=== PATIENT | female | born 1980 | race American Indian/Alaskan Native ===

== ENCOUNTER 2021-09-17 18:53 | Inpatient (IN) | payer OTHER, SELFPAY ==
[2021-09-17] VITALS (29 sets, daily range): BP systolic 119–161; BP diastolic 65–111; PULSE 81–104; RESP 8–24; TEMP 36.2; O2SAT 95–100
--- NOTE | 2021-09-17 19:02 | DI.CT.S_ITS ---
PROCEDURE: CT HEAD/BRAIN WO CON INDICATIONS: altered, suicidal TECHNIQUE: Noncontrast 4.5 mm thick angled axial sections acquired from the foramen magnum to the vertex, with coronal and sagittal reformats. For radiation dose reduction, the following was used: automated exposure control, adjustment of mA and/or kV according to patient size. COMPARISON: None. FINDINGS: Image quality: Excellent. CSF spaces: Basal cisterns are patent. No extra-axial fluid collections. Ventricles are normal in size and shape. Brain: No midline shift. No intracranial masses or hemorrhage. White-white matter interface is normal. Skull and face: Calvarium and visualized facial bones are intact, without suspicious lesions. Sinuses: Visualized sinuses and mastoids are clear. IMPRESSION: No acute intracranial abnormality Dictated by: Rom Sinha M.D. on 09/17/2021 at 19:28 Approved by: Rom Sinha M.D. on 09/17/2021 at 19:29
--- NOTE | 2021-09-17 19:02 | DI.RAD.S_ITS ---
PROCEDURE: XR CHEST 1V INDICATIONS: altered TECHNIQUE: One view of the chest was acquired. COMPARISON: None. FINDINGS: Surgical changes and devices: None. Lungs and pleura: Lungs are clear. No pleural effusions or pneumothorax. Mediastinum: Mediastinal contours appear normal. Heart size is normal. Bones and chest wall: No suspicious bony lesions. Overlying soft tissues appear unremarkable. IMPRESSION: No acute cardiopulmonary abnormality. Dictated by: Rom Sinha M.D. on 09/17/2021 at 19:54 Approved by: Rom Sinha M.D. on 09/17/2021 at 19:54
--- NOTE | 2021-09-17 19:03 | ED.AMS ---
HPI - Altered Mental Status General Chief Complaint: Toxicology Problem Stated Complaint: withdrawl heroin / meth + Suicidal / self harm Time Seen by Provider: 09/17/21 19:00 History of Present Illness HPI narrative: 41-year-old female former smoker with report of congenital heart issues and mental health history presents by EMS with report of suicidal ideation and threats to harm herself with a knife. She admits to significant alcohol abuse but denies any other substances. She has a very poor historian and guarding her airway, responding to noxious stimuli but providing very little information. Related Data Home Medications Medication Instructions Recorded Confirmed furosemide 20 mg tablet 20 mg PO QAM 09/17/21 09/17/21 gabapentin 300 mg tablet 300 mg PO TID 09/17/21 09/17/21 ibuprofen 400 mg tablet 400 mg PO Q8H PRN 09/17/21 09/17/21 isosorbide dinitrate 10 mg tablet 10 mg PO TID 09/17/21 09/17/21 losartan 50 mg tablet 50 mg PO DAILY 09/17/21 09/17/21 metoprolol succinate 50 mg 50 mg PO DAILY 09/17/21 09/17/21 tablet,extended release 24 hr omeprazole 20 mg capsule,delayed 20 mg PO DAILY 09/17/21 09/17/21 release quetiapine 50 mg tablet (Seroquel) 50 mg PO BEDTIME 09/17/21 09/17/21 venlafaxine 75 mg capsule,extended 75 mg PO QAM 09/17/21 09/17/21 release 24 hr Allergies Allergy/AdvReac Type Severity Reaction Status Date / Time pumpkin Allergy Severe Anaphylaxis Verified 09/17/21 20:21 squash Allergy Severe Anaphylaxis Verified 09/17/21 20:21 tree nut Allergy Severe Hives Verified 09/17/21 20:21 watermelon Allergy Severe Anaphylaxis Verified 09/17/21 20:21 lisinopril Allergy Intermediate Hives Verified 09/17/21 20:21 Review of Systems Review of Systems ROS Unobtainable: Unobtainable due to mental status/LOC Patient History Medical History (Updated 09/18/21 @ 04:54 by Link Nair DO) Alcohol withdrawal seizure Anxiety and depression Methamphetamine use Neuropathy No blood products Nonischemic cardiomyopathy PTSD (post-traumatic stress disorder) Surgical History (Updated 09/17/21 @ 20:18 by Lucía Denise RN) H/O tubal ligation Social History Smoking Status: Current every day smoker Exam Narrative Exam Narrative: GENERAL: 41 [] year old patient appears stated age. Well-developed patient, in obvious distress. Obtunded responds to noxious stimuli, guarding her airway. HEAD: Atraumatic. Normocephalic. EYES: Pupils equal round and reactive. Extraocular motions intact. No scleral icterus. No injection or drainage. ENT: Nose without bleeding, purulent drainage. Throat without erythema, tonsillar hypertrophy or exudate. Airway patent. NECK: Trachea midline. Non tender CARDIOVASCULAR: Regular rate and rhythm without murmurs, gallops, or rubs. RESPIRATORY: Clear to auscultation. Breath sounds equal bilaterally. No wheezes, rales, or rhonchi. GASTROINTESTINAL: Abdomen soft, non-tender, nondistended. EXTREMITIES: No edema or joint tenderness. BACK: Nontender without deformity or crepitance. No flank tenderness. SKIN: No rash or erythema of visible areas Initial Vital Signs Initial Vital Signs: Vital Signs Temperature 97.1 F L 09/17/21 18:50 Pulse Rate 87 09/17/21 18:50 Respiratory Rate 24 09/17/21 18:50 Blood Pressure 161/92 H 09/17/21 18:50 Pulse Oximetry 95 09/17/21 18:50 Course Course Course Narrative: Over the course of the visit the patient rather quickly becomes more alert. She is able to answer questions and states that she was drinking to excess, hoping not to wake up. She states that she routinely drinks between 1 to 2/5 of liquor per day and has been doing so for quite some time. Her last visit to any type of rehab or detox was in May. Her last hospitalization was at [facility] in [place] and we are working on obtaining records. Additionally, she frequently uses opioids and last used about 4 days ago. She states that she wants to go back to rehab and wants help. She is tearful and remorseful. As she joleen up she rather quickly starts developing withdrawal symptoms including agitation and tachycardia as well as diaphoresis and increasing nausea and vomiting. She responds well to phenobarb 260 mg initially but after about 1 hour symptoms begin to increase, another dose of phenobarb was given, this was helpful for about 2 hours at which point another dose was needed. She is given Catapres for help with her opioid withdrawals and though Suboxone was ordered it is held initially given its potential to contribute to respiratory depression and potentially even make seizures harder to treat. Patient has been admitted to the hospitalist, we currently have no bed availability and she will be boarding in the emergency department for the remainder of the shift. Orders Ordered: ED Orders 09/18/21 02:05 Urine Drug Screen, Rapid Stat Buprenorphine/Naloxone (Buprenorphine/Naloxone 8mg/2mg 1 Tab) 1 tab SL DAILY NICK Sodium Chloride (Normal Saline 0.9%) 1,000 mls @ 150 mls/hr IV CONT NICK Last Admin: 09/18/21 02:09 Dose: 150 mls/hr Documented by: Infusion: 09/18/21 02:07 Dose: 150 mls/hr Documented by: Admin: 09/17/21 19:26 Dose: 150 mls/hr Documented by: SHERRON Discontinued Medications Clonidine HCl (Clonidine Tts 0.1 Mg Patch) 0.1 mg TOP NOW ONE Stop: 09/18/21 04:14 Last Admin: 09/18/21 04:43 Dose: 0.1 mg Documented by: RAYRAY Ondansetron HCl (Ondansetron 4 Mg/2 Ml Inj) 4 mg IV NOW ONE Stop: 09/18/21 01:53 Last Admin: 09/18/21 02:09 Dose: 4 mg Documented by: SHERRON Ondansetron HCl (Ondansetron 4 Mg/2 Ml Inj) 4 mg IV NOW ONE Stop: 09/18/21 02:54 Last Admin: 09/18/21 02:59 Dose: 4 mg Documented by: JESSICA Pantoprazole Sodium (Pantoprazole 40 Mg Vial) 40 mg IV NOW ONE Stop: 09/18/21 01:53 Last Admin: 09/18/21 02:09 Dose: 40 mg Documented by: SHERRON Phenobarbital (Phenobarbital 65 Mg/Ml Vial) 260 mg IV NOW ONE Stop: 09/18/21 01:53 Last Admin: 09/18/21 02:09 Dose: 260 mg Documented by: SHERRON Phenobarbital (Phenobarbital 65 Mg/Ml Vial) 130 mg IV NOW ONE Stop: 09/18/21 02:54 Last Admin: 09/18/21 02:59 Dose: 130 mg Documented by: JESSICA Phenobarbital (Phenobarbital 65 Mg/Ml Vial) 130 mg IV NOW ONE Stop: 09/18/21 04:06 Last Admin: 09/18/21 04:09 Dose: 130 mg Documented by: RAYRAY Vital Signs Vital signs: Vital Signs - 8 hr 09/17/21 20:50 09/17/21 21:00 09/17/21 21:10 Pulse Rate 89 86 84 Respiratory Rate 11 L 14 15 Blood Pressure 121/71 119/69 125/71 Pulse Oximetry 99 99 99 09/17/21 21:20 09/17/21 21:30 09/17/21 21:40 Pulse Rate 93 H 88 85 Respiratory Rate 12 15 14 Blood Pressure 128/74 134/72 126/69 Pulse Oximetry 98 99 99 09/17/21 21:50 09/17/21 22:00 09/17/21 22:10 Pulse Rate 87 92 H 87 Respiratory Rate 15 16 15 Blood Pressure 124/69 125/70 121/68 Pulse Oximetry 99 99 99 09/17/21 22:20 09/17/21 22:30 09/17/21 22:40 Pulse Rate 89 89 89 Respiratory Rate 14 15 15 Blood Pressure 123/69 127/70 129/69 Pulse Oximetry 99 99 99 09/17/21 22:50 09/17/21 23:00 09/17/21 23:10 Pulse Rate 90 91 H 89 Respiratory Rate 15 15 15 Blood Pressure 129/69 143/74 H 136/65 Pulse Oximetry 99 100 99 09/17/21 23:30 09/18/21 00:00 09/18/21 00:30 Pulse Rate 89 83 85 Respiratory Rate 11 L 12 14 Blood Pressure 134/84 Pulse Oximetry 98 99 100 09/18/21 01:00 09/18/21 01:01 09/18/21 01:30 Pulse Rate 85 84 92 H Respiratory Rate 14 14 13 Blood Pressure 150/99 H Pulse Oximetry 100 100 99 09/18/21 02:00 09/18/21 02:30 09/18/21 03:00 Pulse Rate 103 H 94 H 93 H Respiratory Rate 20 11 L 25 H Blood Pressure Pulse Oximetry 94 94 98 09/18/21 03:30 09/18/21 04:00 09/18/21 04:22 Pulse Rate 93 H 92 H 100 H Respiratory Rate 13 14 27 H Blood Pressure 174/91 H Pulse Oximetry 95 94 97 MDM - Altered Mental Status Lab Data Result diagrams: 09/17/21 19:09/17/21 19: Labs: Lab Results 09/17/21 09/17/21 09/17/21 Range/Units 19:01 19:01 19:01 WBC 6.4 (4.5-11.0) X10^3/uL RBC 4.10 (4.0-5.2) X10^6/uL Hgb 11.3 L (12.0-16.0) g/dL Hct 34.2 L (36-46) % MCV 83.4 (80-100) fL MCH 27.5 (26-34) PG MCHC 33.0 (30-36) % RDW 18.7 H (11.6-14.8) % Plt Count 298 (150-400) X10^3/uL Neut % (Auto) 33.1 L (50-75) % Lymph % (Auto) 56.7 H (25-40) % [place] % (Auto) 4.8 (3-14) % Eos % (Auto) 3.0 (2-4) % Baso % (Auto) 2.4 H (0-2) % Neut # (Auto) 2100 (5469-8837) /uL Lymph # (Auto) 3600 (7852-2766) /uL [place] # (Auto) 300 (0-900) /uL Eos # (Auto) 200 (0-450) /uL Baso # (Auto) 200 H (0-100) /uL Sodium 146 H (137-145) mmol/L Potassium 3.4 (3.4-5.1) mmol/L Chloride 106 (98-107) mmol/L Carbon Dioxide 24 (22-32) mmol/L BUN 11 (7-17) mg/dL Creatinine 0.53 (0.52-1.04) mg/dL Estimated GFR > 60.0 (>60) mL/min BUN/Creatinine Ratio 20.8 (6-22) Glucose 125 H (70-100) mg/dL Lactate (0.7-2.1) mmol/L Calcium 8.8 (8.4-10.2) mg/dL Total Bilirubin 0.8 (0.2-1.3) mg/dL Conjugated Bilirubin 0.0 (0.0-0.3) md/dL Unconjugated Bilirubin 0.7 (0.0-1.1) mg/dL AST 43 H (14-36) IU/L ALT 30 (<35) IU/L Alkaline Phosphatase 91 (38-126) U/L Total Creatine Kinase 110 (30-135) U/L CK-MB (CK-2) 0.83 (<2.37) ng/mL CK-MB (CK-2) Rel Index 0.8 L (1.5-5.0) % Troponin I < 0.012 (0.01-0.034) ng/mL Total Protein 8.2 (6.3-8.2) g/dL Albumin 4.4 (3.5-5.0) g/dL Globulin 3.8 (1.7-4.1) g/dL Albumin/Globulin Ratio 1.2 (1.0-2.8) Salicylates < 1.0 (<20) mg/dL U Opiates 300ng/mL cut (Negative) Ur Oxycodone Screen (Negative) Urine Methadone Screen (Negative) Acetaminophen < 10 L (10-30) ug/mL Ur Barbiturates Screen (Negative) U Tricyclic Antidepress (Negative) Ur Phencyclidine Scrn (Negative) Ur Amphetamines Screen (Negative) U Methamphetamines Scrn (Negative) Ur MDMA Scrn (Ecstasy) (Negative) U Benzodiazepines Scrn (Negative) Urine Cocaine Screen (Negative) U Marijuana (THC) Screen (Negative) Ethyl Alcohol 431 H* ( - 10) mg/dL SARS-CoV-2 (PCR) (Negative) 09/17/21 09/17/21 09/17/21 Range/Units 19:01 19:08 19:08 WBC (4.5-11.0) X10^3/uL RBC (4.0-5.2) X10^6/uL Hgb (12.0-16.0) g/dL Hct (36-46) % MCV (80-100) fL MCH (26-34) PG MCHC (30-36) % RDW (11.6-14.8) % Plt Count (150-400) X10^3/uL Neut % (Auto) (50-75) % Lymph % (Auto) (25-40) % [place] % (Auto) (3-14) % Eos % (Auto) (2-4) % Baso % (Auto) (0-2) % Neut # (Auto) (9078-2160) /uL Lymph # (Auto) (2057-6224) /uL [place] # (Auto) (0-900) /uL Eos # (Auto) (0-450) /uL Baso # (Auto) (0-100) /uL Sodium (137-145) mmol/L Potassium (3.4-5.1) mmol/L Chloride (98-107) mmol/L Carbon Dioxide (22-32) mmol/L BUN (7-17) mg/dL Creatinine (0.52-1.04) mg/dL Estimated GFR (>60) mL/min BUN/Creatinine Ratio (6-22) Glucose (70-100) mg/dL Lactate 2.7 H (0.7-2.1) mmol/L Calcium (8.4-10.2) mg/dL Total Bilirubin (0.2-1.3) mg/dL Conjugated Bilirubin (0.0-0.3) md/dL Unconjugated Bilirubin (0.0-1.1) mg/dL AST (14-36) IU/L ALT (<35) IU/L Alkaline Phosphatase (38-126) U/L Total Creatine Kinase (30-135) U/L CK-MB (CK-2) (<2.37) ng/mL CK-MB (CK-2) Rel Index (1.5-5.0) % Troponin I (0.01-0.034) ng/mL Total Protein (6.3-8.2) g/dL Albumin (3.5-5.0) g/dL Globulin (1.7-4.1) g/dL Albumin/Globulin Ratio (1.0-2.8) Salicylates (<20) mg/dL U Opiates 300ng/mL cut (Negative) Ur Oxycodone Screen (Negative) Urine Methadone Screen (Negative) Acetaminophen (10-30) ug/mL Ur Barbiturates Screen (Negative) U Tricyclic Antidepress (Negative) Ur Phencyclidine Scrn (Negative) Ur Amphetamines Screen (Negative) U Methamphetamines Scrn (Negative) Ur MDMA Scrn (Ecstasy) (Negative) U Benzodiazepines Scrn (Negative) Urine Cocaine Screen (Negative) U Marijuana (THC) Screen (Negative) Ethyl Alcohol ( - 10) mg/dL SARS-CoV-2 (PCR) Negative Negative (Negative) 09/17/21 09/18/21 Range/Units 21:17 02:05 WBC (4.5-11.0) X10^3/uL RBC (4.0-5.2) X10^6/uL Hgb (12.0-16.0) g/dL Hct (36-46) % MCV (80-100) fL MCH (26-34) PG MCHC (30-36) % RDW (11.6-14.8) % Plt Count (150-400) X10^3/uL Neut % (Auto) (50-75) % Lymph % (Auto) (25-40) % [place] % (Auto) (3-14) % Eos % (Auto) (2-4) % Baso % (Auto) (0-2) % Neut # (Auto) (3364-0138) /uL Lymph # (Auto) (8823-3463) /uL [place] # (Auto) (0-900) /uL Eos # (Auto) (0-450) /uL Baso # (Auto) (0-100) /uL Sodium (137-145) mmol/L Potassium (3.4-5.1) mmol/L Chloride (98-107) mmol/L Carbon Dioxide (22-32) mmol/L BUN (7-17) mg/dL Creatinine (0.52-1.04) mg/dL Estimated GFR (>60) mL/min BUN/Creatinine Ratio (6-22) Glucose (70-100) mg/dL Lactate 2.0 (0.7-2.1) mmol/L Calcium (8.4-10.2) mg/dL Total Bilirubin (0.2-1.3) mg/dL Conjugated Bilirubin (0.0-0.3) md/dL Unconjugated Bilirubin (0.0-1.1) mg/dL AST (14-36) IU/L ALT (<35) IU/L Alkaline Phosphatase (38-126) U/L Total Creatine Kinase (30-135) U/L CK-MB (CK-2) (<2.37) ng/mL CK-MB (CK-2) Rel Index (1.5-5.0) % Troponin I (0.01-0.034) ng/mL Total Protein (6.3-8.2) g/dL Albumin (3.5-5.0) g/dL Globulin (1.7-4.1) g/dL Albumin/Globulin Ratio (1.0-2.8) Salicylates (<20) mg/dL U Opiates 300ng/mL cut Negative (Negative) Ur Oxycodone Screen Negative (Negative) Urine Methadone Screen Negative (Negative) Acetaminophen (10-30) ug/mL Ur Barbiturates Screen Negative (Negative) U Tricyclic Antidepress Negative (Negative) Ur Phencyclidine Scrn Negative (Negative) Ur Amphetamines Screen Negative (Negative) U Methamphetamines Scrn Negative (Negative) Ur MDMA Scrn (Ecstasy) Negative (Negative) U Benzodiazepines Scrn Negative (Negative) Urine Cocaine Screen Negative (Negative) U Marijuana (THC) Screen Negative (Negative) Ethyl Alcohol ( - 10) mg/dL SARS-CoV-2 (PCR) (Negative) Discharge Plan Departure Patient Disposition: Admitted As Inpatient Clinical Impression: Alcohol withdrawal syndrome, Depression with suicidal ideation Admit Date/Time: 09/18/21 04:47 Admit Provider: Cookie Novak
[2021-09-17 19:16] LABS: Add Manual Diff / Slide Review NO; Basophils Absolute Auto 200 /uL (0-100); Basophils Percent Auto 2.4 % (0-2); Eosinophils Absolute Auto 200 /uL (0-450); Hematocrit 34.2 % (36-46); Hemoglobin 11.3 g/dL (12.0-16.0); Lymphocytes Absolute Auto 3600 /uL (1100-4500); Lymphocytes Percent Auto 56.7 % (25-40); Mean Corpuscular Hemoglobin 27.5 PG (26-34); Mean Corpuscular Volume 83.4 fL (80-100); Monocytes Absolute Auto 300 /uL (0-900); Monocytes Percent Auto 4.8 % (3-14); Neutrophils Absolute Auto 2100 /uL (1500-7000); Neutrophils Percent Auto 33.1 % (50-75); Platelet Count 298 X10^3/uL (150-400); Red Cell Distribution Width 18.7 % (11.6-14.8); White Blood Cell Count 6.4 X10^3/uL (4.5-11.0)
[2021-09-17 19:25] LABS: Creatine Kinase 110 U/L (30-135)
[2021-09-17 19:26] LABS: COVID19 -Nasal RAPID Negative (Negative)
[2021-09-17] MEDS: SODIUM CHLORIDE 0.9% 1,000 ML 150 ML IV (19:26)
[2021-09-17 19:28] LABS: Acetaminophen < 10 ug/mL (10-30); Alanine Aminotransferase 30 IU/L (<35); Albumin 4.4 g/dL (3.5-5.0); Albumin Globulin Ratio 1.2 (1.0-2.8); Alkaline Phosphatase 91 U/L (38-126); Aspartate Aminotransferase 43 IU/L (14-36); BUN Creatinine Ratio 20.8 (6-22); Bilirubin Total 0.8 mg/dL (0.2-1.3); Bilirubin Unconjugated 0.7 mg/dL (0.0-1.1); Blood Urea Nitrogen 11 mg/dL (7-17); Calcium 8.8 mg/dL (8.4-10.2); Carbon Dioxide 24 mmol/L (22-32); Chloride 106 mmol/L (98-107); Estimated Glomerular Filt Rate > 60.0 mL/min (>60); Globulin 3.8 g/dL (1.7-4.1); Glucose 125 mg/dL (70-100); HEMOLYSIS < 15 (0-50); Potassium 3.4 mmol/L (3.4-5.1); Salicylate < 1.0 mg/dL (<20); Sodium 146 mmol/L (137-145); Total Protein 8.2 g/dL (6.3-8.2)
[2021-09-17 19:37] LABS: Troponin I < 0.012 ng/mL (0.01-0.034)
[2021-09-17 19:38] LABS: Lactate (Lactic Acid) 2.7 mmol/L (0.7-2.1)
[2021-09-17 19:39] LABS: Ethanol (ETOH) 431 mg/dL
[2021-09-17 19:41] LABS: CKMB % Relative Index 0.8 % (1.5-5.0); Creatine Kinase MB 0.83 ng/mL (<2.37)
[2021-09-17 20:21] LABS: COVID19 - ADMIT (NP swab/PCR) Negative (Negative)
[2021-09-17 21:05] LABS: Reflexed Lactate in 2 Hours Y
--- NOTE | 2021-09-17 22:56 | PC.NURSE ---
During assessment patient was somnolent but arousable and was able to answer some questions and verbalize that she is experiencing both auditory and visual hallucinations. She also verbalized constant suicidal thoughts but has no plan and just hoping it would happen. Patient reports hx of both heroin and meth use but has not been able to use in 2 days and reports vodka is what she typically drinks. Her hallucinations include: little things running around trying to jump on the bed (visual) Hear things I shouldn't hear (auditory) How they haven't killed me yet (auditory) How many ways they will kill me (auditory) I'm not safe (auditory) Her visual hallucinations include an ex who previously killed me and is still trying to kill me and is the voice she hears.
[2021-09-18] VITALS (43 sets, daily range): BP systolic 103–178; BP diastolic 58–99; PULSE 72–116; RESP 9–37; TEMP 36.7–37.4; O2SAT 93–100; BMI 32.2
[2021-09-18] MEDS: PHENobarbital 65 MG/ML VIAL 260 MG IV (02:09)
[2021-09-18] MEDS: SODIUM CHLORIDE 0.9% 1,000 ML 150 ML IV (02:09)
[2021-09-18] MEDS: PANTOPRAZOLE 40 MG VIAL IV (02:09)
[2021-09-18] MEDS: ONDANSETRON 4 MG/2 ML INJ IV ×2 (02:09→02:59)
[2021-09-18 02:16] LABS: Ur Creatinine 20 (Normal); Ur Specific Gravity 1.025 (Normal); Urine pH 5 (Normal)
[2021-09-18 02:17] LABS: UR Morphine/Opiate cutoff 300 Negative (Negative); Urine Amphetamines Negative (Negative); Urine Barbiturates Negative (Negative); Urine Benzodiazepines Negative (Negative); Urine Cocaine Negative (Negative); Urine MDMA Negative (Negative); Urine Methadone Negative (Negative); Urine Methamphetamines Negative (Negative); Urine Oxycodone Negative (Negative); Urine Phencyclidine Negative (Negative); Urine Tetrahydrocannabinol Negative (Negative); Urine Tricyclic Antidepressant Negative (Negative)
--- NOTE | 2021-09-18 02:44 | PC.NURSE ---
Tremors have stopped after phenobarb. Pt states she's feeling better.
[2021-09-18] MEDS: PHENobarbital 65 MG/ML VIAL 130 MG IV ×2 (02:59→04:09)
[2021-09-18] MEDS: cloNIDine TTS 0.1 MG PATCH TOP (04:43)
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
[2021-09-18] MEDS: dexmedeTOMIDine in 0.9 % NaCL 400 MCG/100 ML PLAST..BAG IV (06:10)
[2021-09-18] MEDS: SODIUM CHLORIDE 0.45% 1,000 ML 100 ML IV ×2 (06:18→15:38)
[2021-09-18 06:52] LABS: Lipase 72 U/L (23-300)
[2021-09-18] MEDS: HALOPERIDOL 5 MG/ML VIAL 2 MG IV (07:43)
--- NOTE | 2021-09-18 08:59 | PC.NURSE ---
AM meds held-- first for vomiting, now pt sleeping comfortably on Precedex drip.
[2021-09-18] MEDS: THIAMINE 100 MG TABLET PO (10:13)
[2021-09-18] MEDS: GABAPENTIN 300 MG CAPSULE PO ×2 (10:13→20:34)
[2021-09-18] MEDS: METOPROLOL ER 50 MG TABLET PO (10:13)
[2021-09-18] MEDS: PANTOPRAZOLE DR 40 MG TABLET PO (10:14)
[2021-09-18] MEDS: FOLIC ACID 1 MG TABLET PO (10:14)
[2021-09-18] MEDS: ISOSORBIDE DINITRATE 10 MG TABLET PO ×2 (10:14→19:33)
[2021-09-18] MEDS: DOCUSATE 100 MG CAPSULE PO ×2 (10:14→20:34)
[2021-09-18] MEDS: MULTIVITAMIN 1 TABLET 1 TAB PO (10:15)
[2021-09-18] MEDS: LOSARTAN 50 MG TABLET PO (10:16)
[2021-09-18] MEDS: VENLAFAXINE ER 75 MG CAP PO (10:16)
[2021-09-18] MEDS: HEPARIN 5,000 UNIT/ML VIAL 5000 UNIT SUBCUT ×2 (10:20→20:34)
--- NOTE | 2021-09-18 10:51 | PC.NURSE ---
EKG reviewed w/ Dr. Garcia. Noted prolonged QT interval. Order received to discontinue all medications that prolong QTC. Spoke w/ Navdeep [facility] who will review, venlafaxine, quitiapine, precedex, haldol and start ativan according to CIWA / withdrawal protocol.
[2021-09-18] MEDS: LORazepam 2 MG/ML INJ IV ×2 (13:15→20:33)
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
--- NOTE | 2021-09-18 14:23 | CM.SWNOTE ---
FOOD AND DRUG INSPECTOR Note FOOD AND DRUG INSPECTOR calls Prasanth [facility] (Ph. # [phone]) to discuss patient's belongings, it is reported that patient's belongings are at the motel. FOOD AND DRUG INSPECTOR asks if they could be dropped of at ED, it is reported that count includes the [facility] is understaffed at this time but staff will try to find time to do so. FOOD AND DRUG INSPECTOR provides phone number for count includes the [facility] staff to contact for further updates about patient retrieving her belongings. LIVAN Soni
--- NOTE | 2021-09-18 14:33 | PC.NURSE ---
isosorbid dose due at 12noon held r/t last am dose. Receiving RN aware.
--- NOTE | 2021-09-18 16:44 | PT-IP ANOTE ---
pt just came up to the acute floor from the ER. checked with nurse and stated that pt received ativan prior to transfer to the floor and is not ready for PT at this time. will f/u.
[2021-09-19] VITALS (12 sets, daily range): BP systolic 114–144; BP diastolic 49–98; PULSE 60–84; RESP 14–21; TEMP 36.7–37.1; O2SAT 98–100
[2021-09-19] MEDS: SODIUM CHLORIDE 0.45% 1,000 ML 100 ML IV ×2 (00:32→10:14)
[2021-09-19 05:54] LABS: Magnesium 1.6 mg/dL (1.6-2.3)
[2021-09-19 05:56] LABS: Alanine Aminotransferase 25 IU/L (<35); Albumin 3.9 g/dL (3.5-5.0); Albumin Globulin Ratio 1.1 (1.0-2.8); Alkaline Phosphatase 80 U/L (38-126); Aspartate Aminotransferase 45 IU/L (14-36); Bilirubin Total 3.4 mg/dL (0.2-1.3); Blood Urea Nitrogen 6 mg/dL (7-17); Calcium 8.8 mg/dL (8.4-10.2); Carbon Dioxide 27 mmol/L (22-32); Chloride 100 mmol/L (98-107); Estimated Glomerular Filt Rate > 60.0 mL/min (>60); Globulin 3.7 g/dL (1.7-4.1); Glucose 97 mg/dL (70-100); HEMOLYSIS < 15 (0-50); Potassium 3.8 mmol/L (3.4-5.1); Sodium 135 mmol/L (137-145); Total Protein 7.6 g/dL (6.3-8.2)
[2021-09-19] MEDS: ISOSORBIDE DINITRATE 10 MG TABLET PO ×3 (06:00→18:56)
[2021-09-19] MEDS: PANTOPRAZOLE DR 40 MG TABLET PO (06:00)
[2021-09-19 06:04] LABS: Add Manual Diff / Slide Review NO; Basophils Absolute Auto 0 /uL (0-100); Basophils Percent Auto 0.4 % (0-2); Eosinophils Absolute Auto 200 /uL (0-450); Eosinophils Percent Auto 3.5 % (2-4); Hematocrit 33.6 % (36-46); Hemoglobin 11.3 g/dL (12.0-16.0); Lymphocytes Absolute Auto 1200 /uL (1100-4500); Lymphocytes Percent Auto 28.5 % (25-40); Mean Corpuscular HGB Conc 33.6 % (30-36); Mean Corpuscular Hemoglobin 27.7 PG (26-34); Mean Corpuscular Volume 82.3 fL (80-100); Monocytes Absolute Auto 400 /uL (0-900); Monocytes Percent Auto 8.2 % (3-14); NT-proBNP (BNP-Adult 18+) 894 pg/mL (<125); Neutrophils Absolute Auto 2600 /uL (1500-7000); Neutrophils Percent Auto 59.4 % (50-75); Platelet Count 237 X10^3/uL (150-400); Red Blood Cell Count 4.08 X10^6/uL (4.0-5.2); Red Cell Distribution Width 18.5 % (11.6-14.8); White Blood Cell Count 4.3 X10^3/uL (4.5-11.0)
[2021-09-19] MEDS: LORazepam 2 MG/ML INJ IV ×2 (06:15→09:27)
--- NOTE | 2021-09-19 09:40 | PT-IP ANOTE ---
reviewed EMR and pt has CIWA score of 14. talked with nurse and stated that pt has CIWA of 11. ativan was given and will receive other meds at that moment. informed nurse that PT eval will be on hold for now and will recheck when pt is more appropriate. will need PT eval deferred until CIWA score <10. will f/u.
[2021-09-19] MEDS: LOSARTAN 50 MG TABLET PO (10:00)
[2021-09-19] MEDS: HEPARIN 5,000 UNIT/ML VIAL 5000 UNIT SUBCUT ×2 (10:00→22:34)
[2021-09-19] MEDS: FOLIC ACID 1 MG TABLET PO (10:00)
[2021-09-19] MEDS: DOCUSATE 100 MG CAPSULE PO ×2 (10:00→22:33)
[2021-09-19] MEDS: GABAPENTIN 300 MG CAPSULE PO ×3 (10:00→22:33)
[2021-09-19] MEDS: MULTIVITAMIN 1 TABLET 1 TAB PO (10:00)
[2021-09-19] MEDS: METOPROLOL ER 50 MG TABLET PO (10:00)
[2021-09-19] MEDS: THIAMINE 100 MG TABLET PO (10:00)
[2021-09-19] MEDS: ACETAMINOPHEN 325 MG TABLET 650 MG PO (10:07)
--- NOTE | 2021-09-19 11:32 | PM.ICURNDS ---
- :: Informed by MICU staff that patient is not ICU
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
[2021-09-19] MEDS: NICOTINE 14 PATCH 14 MG TOP (12:04)
[2021-09-19] MEDS: ONDANSETRON 4 MG/2 ML INJ IV ×2 (12:12→17:13)
[2021-09-19] MEDS: MAGNESIUM CHLORIDE 64 MG TABLET 128 MG PO (12:13)
[2021-09-19] MEDS: MORPHINE 2 MG/ML INJ IV (12:34)
--- NOTE | 2021-09-19 14:10 | PT.IIE ---
Current Diagnoses Alcohol abuse with withdrawal delirium (09/18/21) Medical History (Last Updated 09/18/21 @ 05:25 by Cookie Novak MD) Alcohol withdrawal seizure Anxiety and depression Hypertension Methamphetamine use Neuropathy No blood products Nonischemic cardiomyopathy PTSD (post-traumatic stress disorder) Physical Therapy Inpatient Evaluation/Re-Eval M1 PT/OT-IP Prior Functional Status Start: 09/19/21 15:55 Freq: NEEDED Status: Active Protocol: Document 09/19/21 14:10 AB (Rec: 09/19/21 16:08 AB [email or web address]) Medical Review Prior Functional Status Medical History Reviewed Yes Communication able to make needs known Mobility and Gait pt stated that she is modified independent with all mobilities and ambulation without AD. stated that she was using a FWW when she was at [place] due to back issues but left her FWW and was able to manage without AD but with difficulty Social History Household Members none Living Arrangements Homeless Additional Social History Comment pt stated that she was staying at her friends place/motel and she got kicked out. stated that she has family back in [place] but cannot go back there since her family does not want her. M2 PT-IP Current Condition Start: 09/19/21 15:55 Freq: NEEDED Status: Active Protocol: Document 09/19/21 14:10 AB (Rec: 09/19/21 16:08 AB [email or web address]) Physical Therapy Current Condition Current Condition Evaluation Date 09/19/21 Treatment Diagnosis alcohol withdrawal; suicidal ideation; difficulty in walking Onset Date 09/18/21 M3 PT-IP Subjective Start: 09/19/21 15:55 Freq: NEEDED Status: Active Protocol: Document 09/19/21 14:10 AB (Rec: 09/19/21 16:08 AB [email or web address]) Subjective Physical Therapy Visit Type Type Initial Evaluation Visit Start Time 14:10 Visit Stop Time 14:45 Total Visit Minutes 35 Number of MANAGER SCIENTIFIC Visits 0 Physical Therapy Visit Comments Patient Comments agreeable to do PT Therapy Pain Assessment Pain When Pain Assessed At Rest Pain Present Pain Present Pain Reported Location Generalized Intensity 8 Scale Used Numeric (0 - 10) Pain Management Techniques Distraction,Modification of Treatment,Re-positioning, Timing of Activity with Medications M4 PT-IP Mobility and Gait Start: 09/19/21 15:55 Freq: NEEDED Status: Active Protocol: Document 09/19/21 14:10 AB (Rec: 09/19/21 16:08 AB [email or web address]) PT-Bed Mobility Assessment Supine to Sit Supine to Sit Standby Assistance Sit to Supine Sit to Supine Standby Assistance PT-Transfer Assessment Sit to and From Stand Sit to and from Stand Minimal Assistance,1 Person Assistance,Use of Upper Extremities Equipment Transfer Assistive Device Gait Belt,Front Wheeled Walker Orthotic/Prosthetic Devices or Brace: No Comments Mobility Comments BP in supine: 141/85. pt completed supine to sit SBA. able to sit on EOB SBA. completed sit to stand min A and cues. (+) tremors. ambulated in room using FWW ~ 20 ft min A . ataxic gait with (+) tremors. pt refused to sit up on chair. went back to bed and completed sit to supine SBA. positioned pt in bed. call light and table placed wtihin reach. Gait Assessment Gait Gait Assistance Required: Minimum Assistance Distance (Feet) 20 Able to Maintain Weight Bearing Status Yes During Gait Assistive Devices Assistive Device Gait Belt,Front Wheeled Walker Orthotic/Prosthetic Devices or Brace: No Gait Deviations General Gait Pattern Decreased Stride Length, Decreased Feet Clearance Factors Limiting Gait Function Factors Limiting Gait Function Decreased Activity Tolerance, Decreased Strength,Difficulty Following Directions,Pain,Poor Balance,Poor Safety Awareness Comments Gait Comments pls refer to mobility section for details PT-Balance Assessment Sitting Balance and Reactions Static Sitting Balance Ability Good Dynamic Sitting Balance Ability Fair Standing Balance and Reactions Static Standing Balance Ability Fair Dynamic Standing Balance Ability Fair Device Used FWW M5 PT-IP Objective Assessments Start: 09/19/21 15:55 Freq: NEEDED Status: Active Protocol: Document 09/19/21 14:10 AB (Rec: 09/19/21 16:08 [email or web address]) Orientation Orientation/Cognition Level of Alertness Alert Orientation Name Language Function Ability No Deficits Noted Safety Awareness Decreased Safety Awareness Gross Range of Motion Lower Extremity ROM Assessment Within Functional Limits Strength Lower Extremity Strength Hip 3+/5 Knee 3+/5 M6 PT-IP Treatment Start: 09/19/21 15:55 Freq: NEEDED Status: Active Protocol: Document 09/19/21 14:10 AB (Rec: 09/19/21 16:08 [email or web address]) Physical Therapy Treatment Education Education Provided Safety M7 PT-IP Assessment and Plan Start: 09/19/21 15:55 Freq: NEEDED Status: Active Protocol: Document 09/19/21 14:10 AB (Rec: 09/19/21 16:08 AB [email or web address]) PT Summary Assessment and Plan Potential Rehabilitation Potential Fair Status of Condition at Evaluation Evolving Summary Impairments Pain,ROM,Strength,Balance, Coordination,Sensation,Tone, Cognition,Bed Mobility, Transfers,Gait,Activity Tolerance Assessment Summary pt requiring min A with mobility using FWW. pt presents with unsteady ataxic gait with (+) tremors. pt will need SNF rehab at this time. will continue to assess progress. Goals Bed Mobility Goal Independent Transfer Goal Independent,Front Wheeled Walker Gait Goal Independent,Front Wheel Walker Gait Distance 200 Other Goals improve ambulation without AD 300 ft mod I up/down steps without AD SBA Days to Meet Goals 10 Frequency of Treatment Frequency Of Treatment Once a Day Treatment Plan Physical Therapy Treatment Plan Bed Mobility Training,Transfer Training,Gait Training, Therapeutic Exercise,Balance Retraining,Discharge Planning, Neuromuscular Re-ed, Coordination Retraining Recommendations To Nursing Amount of Assist Needed 1 Person Assist Discharge Recommendations PT Discharge Recommendations SNF Rehab Transportation Needs at Discharge Wheelchair/Cabulance
--- NOTE | 2021-09-19 14:10 | PT.IIE ---
Current Diagnoses Alcohol abuse with withdrawal delirium (09/18/21) Medical History (Last Updated 09/18/21 @ 05:25 by Cookie Novak MD) Alcohol withdrawal seizure Anxiety and depression Hypertension Methamphetamine use Neuropathy No blood products Nonischemic cardiomyopathy PTSD (post-traumatic stress disorder) Physical Therapy Inpatient Evaluation/Re-Eval M1 PT/OT-IP Prior Functional Status Start: 09/19/21 15:55 Freq: NEEDED Status: Active Protocol: Document 09/19/21 14:10 AB (Rec: 09/19/21 16:08 AB [email or web address]) Medical Review Prior Functional Status Medical History Reviewed Yes Communication able to make needs known Mobility and Gait pt stated that she is modified independent with all mobilities and ambulation without AD. stated that she was using a FWW when she was at [place] due to back issues but left her FWW and was able to manage without AD but with difficulty Social History Household Members none Living Arrangements Homeless Additional Social History Comment pt stated that she was staying at her friends place/motel and she got kicked out. stated that she has family back in [place] but cannot go back there since her family does not want her. M2 PT-IP Current Condition Start: 09/19/21 15:55 Freq: NEEDED Status: Active Protocol: Document 09/19/21 14:10 AB (Rec: 09/19/21 16:08 AB [email or web address]) Physical Therapy Current Condition Current Condition Evaluation Date 09/19/21 Treatment Diagnosis alcohol withdrawal; suicidal ideation; difficulty in walking Onset Date 09/18/21 M3 PT-IP Subjective Start: 09/19/21 15:55 Freq: NEEDED Status: Active Protocol: Document 09/19/21 14:10 AB (Rec: 09/19/21 16:08 AB [email or web address]) Subjective Physical Therapy Visit Type Type Initial Evaluation Visit Start Time 14:10 Visit Stop Time 14:45 Total Visit Minutes 35 Number of PLANT SUPERINTENDENT Visits 0 Physical Therapy Visit Comments Patient Comments agreeable to do PT Therapy Pain Assessment Pain When Pain Assessed At Rest Pain Present Pain Present Pain Reported Location Generalized Intensity 8 Scale Used Numeric (0 - 10) Pain Management Techniques Distraction,Modification of Treatment,Re-positioning, Timing of Activity with Medications M4 PT-IP Mobility and Gait Start: 09/19/21 15:55 Freq: NEEDED Status: Active Protocol: Document 09/19/21 14:10 AB (Rec: 09/19/21 16:08 AB [email or web address]) PT-Bed Mobility Assessment Supine to Sit Supine to Sit Standby Assistance Sit to Supine Sit to Supine Standby Assistance PT-Transfer Assessment Sit to and From Stand Sit to and from Stand Minimal Assistance,1 Person Assistance,Use of Upper Extremities Equipment Transfer Assistive Device Gait Belt,Front Wheeled Walker Orthotic/Prosthetic Devices or Brace: No Comments Mobility Comments BP in supine: 141/85. pt completed supine to sit SBA. able to sit on EOB SBA. c/o lightheadedness, dizziness. BP checked: 152/106. rechecked BP : 151/108. pt agreed to do some ambulation. completed sit to stand min A and cues. (+) tremors. ambulated in room using FWW ~ 20 ft min A . ataxic gait with (+) tremors. pt refused to sit up on chair. went back to bed and completed sit to supine SBA. positioned pt in bed. call light and table placed wtihin reach. BP supine in bed: 144/93 Gait Assessment Gait Gait Assistance Required: Minimum Assistance Distance (Feet) 20 Able to Maintain Weight Bearing Status Yes During Gait Assistive Devices Assistive Device Gait Belt,Front Wheeled Walker Orthotic/Prosthetic Devices or Brace: No Gait Deviations General Gait Pattern Decreased Stride Length, Decreased Feet Clearance Factors Limiting Gait Function Factors Limiting Gait Function Decreased Activity Tolerance, Decreased Strength,Difficulty Following Directions,Pain,Poor Balance,Poor Safety Awareness Comments Gait Comments pls refer to mobility section for details PT-Balance Assessment Sitting Balance and Reactions Static Sitting Balance Ability Good Dynamic Sitting Balance Ability Fair Standing Balance and Reactions Static Standing Balance Ability Fair Dynamic Standing Balance Ability Fair Device Used FWW M5 PT-IP Objective Assessments Start: 09/19/21 15:55 Freq: NEEDED Status: Active Protocol: Document 09/19/21 14:10 AB (Rec: 09/19/21 16:08 AB [email or web address]) Orientation Orientation/Cognition Level of Alertness Alert Orientation Name Language Function Ability No Deficits Noted Safety Awareness Decreased Safety Awareness Gross Range of Motion Lower Extremity ROM Assessment Within Functional Limits Strength Lower Extremity Strength Hip 3+/5 Knee 3+/5 M6 PT-IP Treatment Start: 09/19/21 15:55 Freq: NEEDED Status: Active Protocol: Document 09/19/21 14:10 AB (Rec: 09/19/21 16:08 AB [email or web address]) Physical Therapy Treatment Education Education Provided Safety M7 PT-IP Assessment and Plan Start: 09/19/21 15:55 Freq: NEEDED Status: Active Protocol: Document 09/19/21 14:10 AB (Rec: 09/19/21 16:08 AB [email or web address]) PT Summary Assessment and Plan Potential Rehabilitation Potential Fair Status of Condition at Evaluation Evolving Summary Impairments Pain,ROM,Strength,Balance, Coordination,Sensation,Tone, Cognition,Bed Mobility, Transfers,Gait,Activity Tolerance Assessment Summary pt requiring min A with mobility using FWW. pt presents with unsteady ataxic gait with (+) tremors. pt will need SNF rehab at this time. will continue to assess progress. Goals Bed Mobility Goal Independent Transfer Goal Independent,Front Wheeled Walker Gait Goal Independent,Front Wheel Walker Gait Distance 200 Other Goals improve ambulation without AD 300 ft mod I up/down steps without AD SBA Days to Meet Goals 10 Frequency of Treatment Frequency Of Treatment Once a Day Treatment Plan Physical Therapy Treatment Plan Bed Mobility Training,Transfer Training,Gait Training, Therapeutic Exercise,Balance Retraining,Discharge Planning, Neuromuscular Re-ed, Coordination Retraining Recommendations To Nursing Amount of Assist Needed 1 Person Assist Discharge Recommendations PT Discharge Recommendations SNF Rehab Transportation Needs at Discharge Wheelchair/Cabulance
[2021-09-19] MEDS: LORazepam 1 MG TABLET PO ×3 (14:42→22:29)
--- NOTE | 2021-09-19 15:45 | CM.DANOTE ---
DCP/continued:Reviewed chart. Patient currently in room# 225. Patient reports that she is actively detoxing from alcohol. Patient reports that she has had seizures in the past from detox. Met briefly with patient today. Patient denies suicidal or homicidal ideation(s). Patient requesting to get assistance with transportation to [facility]. Patient reports that her sober friend/Una is there and she would like to go there. Patient reports that she lives in [place] and was here visiting her son whom is now in prison. Patient reports that she does not have money to get ticket to [place]. Patient provides CM team with permission to speak with her Mother/Keyana in [place] re: patient's return. CM team will request TRAINING AND DEVELOPMENT PROFESSIONAL follow up on 09-20-21. In addition to the above patient requesting that her belongings be brought here from [facility]. TRAINING AND DEVELOPMENT PROFESSIONAL notified patient that [facility] does not have space for patient's belongings. However, TRAINING AND DEVELOPMENT PROFESSIONAL did call [facility] and confirm that they have patient belongings and that they are safe. P: Patient requesting assistance to obtain transport to [place], [place] when medically stable. Patient agreeable for CM team to call family to assist. CARMEN Discharge Planning/Care Management CM Discharge Assessment Start: 09/19/21 15:42 Freq: Status: Active Protocol: Document 09/19/21 15:42 ZENYS (Rec: 09/19/21 15:44 ZENYS [id number]) Discharge Planning Assessment Assigned Staff Electronic Warfare Officer LIVAN Garnica Contact Information Keyana [place] (Mother) ph# [phone] Advance Directives? No History Provided By Patient,Medical Record Prior Living Arrangements Homeless Household Members none Type of transporation used prior to Relies on Others admit Independent with ADL's Yes Is patient alert and oriented? Yes Caregiver for Another No DME Already Rented / Owned Cane Comment Patient reports back issues since May 2021 patient uses cane as needed. Referrals Initiated Other Whiteboard Updated in Patient Room with Yes name and ext. # of Staff Electronic Warfare Officer Review Status In Process Next Review Type Continued Stay Review ED Psychiatric Symptoms Assessment Start: 09/18/21 11:01 Freq: Status: Discharge Protocol: Document 09/18/21 11:19 NICHOLAS (Rec: 09/18/21 13:20 NICHOLAS [id number]) Psychiatric Symptoms Assessment Symptoms/Complaint Feels Depressed Duration Constant History Of Same Yes Context Unknown Improves With Therapy Worsens With Alcohol,Drug Use Associated Psychiatric Symptoms None Details of Plan Denies SI/HI. States I get like that when I'm drinking but I want to live and have a lot to live for. Level of Consciousness Alert,Appropriate,Awake Patient Orientation Name,Age,Birthday,Month,Date, Year Patient Behavior/Mood Anxious Ability to Follow Directions Excellent Patient Cognition Impaired No Affect Description Anxious Hallucination Type None Delusion Description Not Present Thought Process: Normal,Goal-directed Depressive Symptoms Increased Anxiety,Low Self Esteem Suicidal Ideation None Suicide Plan No Plan Homicidal Ideation None TRAINING AND DEVELOPMENT PROFESSIONAL - Loan Specialist Assessment Start: 09/18/21 13:47 Freq: Status: Discharge Protocol: Document 09/18/21 13:47 LN (Rec: 09/18/21 14:17 LN [id number]) TRAINING AND DEVELOPMENT PROFESSIONAL/Loan Specialist Assessment Start date 09/18/21 Visit Start Time 13:10 End date 09/18/21 Visit End Time 13:25 Total time Care Management spent on 20 patient visit-in minutes Presenting Problem Patient presents to the ED last evening via EMS with concern for ETOH overdose, hx of methamphetamine and herion use as well as suicidal ideations. Precipitating Event(s) Patient endorses that she used Methamphetamine and Herion 4 days ago but last evening she drank at least a fifth of vodka way overdid it. Patient endorses she resides in [place] and came to [place] seeking support from a friend but friend chose his girlfriend over her. Patient endorses SI last night but no current SI. Patient Strengths Patient is seeking help and would like to go to group home [facility] inpatient treatment. Current Behavioral Health Provider(s) None reported Include Facility, Provider, Ph. # Family Hx of Behavioral Abuse Patient endorses her friends and family members use substances and are not good sober supports. Rehab Facilities? ((Date(s), Location(s) Patient endorses going to ) [facility] in [place], [place] in 2007 for 4 months. It is reproted that this inpatient facility is no longer open. Patient endorses going to [facility] inpatient treatment in 2018 for 30 days in [place], [place] (Ph. # [phone]) Patient endorses going to the [facility] in [place], [place] in May 2021 for 30 days during the blackout period, then left the facility and relapsed. (Ph. # [phone]) Patient endorses that she has hx of going to detox several times and engaging in AA. Patient endorses that she was residing in a sober living house in [place], [place] in 2019. History of Withdrawal? Seizures? Patient endorses hx of Delirium Temens, seizures, shaking, hot and cold sweats, anxiety, dry heaving and visual and auditory hallucinations. Longest Period of Sobriety 9 months when she was with her children. Psychosocial information & Support Patient is 41 y/o female who Systems endorses she resides primarily in [place] but was visiting a friend in [facility] and that friend is no longer a support. Patient endorses that she was staying with friend and then he kicked her out, patient endorses last evening she was staying at the [facility] [employer] in [place] and some of her belongings are still at the mot. Patient endorses she has 5 children ranging in ages 16-25 . Patient endorses her 16 y/o lives with their dad in [place] and her 17 y/o lives at a boarding school near [place], [place]. Patient denies any local supports. School/Work None reported Legal Matters - Outstanding Issues None reported Orientation (Person/Place/Time) A/Ox4 Stated Mood still really sick Affect (Congruent with Mood?) Euthymic, full range, congruent with mood. Thought Content - Specify/Describe Patient endorses visual and Obsessions, Delusions, Hallucinations auditory hallucinations last evening. Patient denies current thought content. Patient endorses that last night she saw black things on the floor and I felt them jumping up on the bed. Patient endorses thinking that her mother and her friend were talking to her and she heard their voices but did not see them. Patient denies current auditory and visual hallucinations. Thought Processes (Zekiyeo-Shqigozg-Dquq Goal Directed Zujtdfes-Fcfsrrkb-Srkhivdrkg- Igwactwwjpvxpq-Dxlkgff-Znenpnktckdn- Thought Blocking) Speech (Ytjuzs-Ejpx-Vcvlltf-Rapid-Soft- Normal/slow Loud-Pressured) Motor (Cohabq-Dtqtstygl-Jxqf-Other) Normal/slow, not formally assessed. Patient endorses that she cannot see because she took out her contacts, patient presents with closed eyes. Patient presents slowly shaking. Insight (Nowa-Ahha-Xeze/Limited) fair Judgement (Nfvd-Ddwi-Tbpd/Limited) fair/limited Impulse Control (Adequate-Impaired) adequate during assessment Memory (Lwuumzlfh-Vnfmlo-Wvwsku, intact, not formally assessed Impaired-Intact) Concentration (Intact-Impaired) intact Attention (Intact-Impaired) intact Behavior (Appropriate-Inappropriate) appropriate Additional Comment patient is calm and communicative. Suicidal Ideation (Plan) No Homicidal Ideation (Plan) No Comment Patient denies current SI and self harm. Patient endorses that she had SI when she came into the hospital and wanted to . Patient states I don' t want to , I want to make it through for my kids. Intervention TRAINING AND DEVELOPMENT PROFESSIONAL enters room to meet with patient. Patient endorses she is a bad alcoholic. Patient endorses her desire to get into a manager long term care inpatient treatment program. Patient endorses her primary residence is in [place] and she was staying with a friend in [facility] but he is no longer a support. Patient denies any current local supports. Patient endorses that she way way overdid it last night. Patient's BAL upon arrival to the ED was 431. Patient denies current SI and self harm and endorses her desire to seek treatment. Patient endorses her concern for her belongings that were left at the [facility] in [place] and would like to retrieve her belongings some how. TRAINING AND DEVELOPMENT PROFESSIONAL to contact [facility] to coordinate patient retrieving her belongings. Per ED provider Dr. Lerma and stripper printed circuit boards Lucía patient is accepted for hospital admission by hospitalist in acute care and patient is awaiting a room. At this time patient is not medically clear for d/c. It is the opinion of this TRAINING AND DEVELOPMENT PROFESSIONAL that patient is appropriate for and would benefit from [facility] inpatient treatment and utilizing supports in [place] to return to her home state where she can access natural supports and [facility] resources that she has accessed in the past. RA Plan Patient admitted to acute care for further medical assessment and observation, DCP to f/u with POC for patient.
--- NOTE | 2021-09-19 19:08 | PC.NURSE ---
Pt is A&Ox3 slightly forgetful of exact date this a.m. VSS, afebrile on RA. LS CTA. She ambulates with SBA using FWW. Tremors improved this afternoon and CIWA score improved as the day went on from 11 to 6 as well as headache and nausea. She is able to eat about 10-20% of full liquid diet but then reports feeling very full BS +x4, passing gas and +BM today. She sleeps on and off throughout the day. Therapy evaluating patient this afternoon.
[2021-09-20] VITALS (14 sets, daily range): BP systolic 107–135; BP diastolic 64–94; PULSE 55–76; RESP 14–20; TEMP 36.4–37.2; O2SAT 96–99
[2021-09-20] MEDS: MORPHINE 2 MG/ML INJ IV ×4 (06:39→22:06)
[2021-09-20] MEDS: ISOSORBIDE DINITRATE 10 MG TABLET PO ×3 (06:39→16:00)
[2021-09-20] MEDS: PANTOPRAZOLE DR 40 MG TABLET PO (06:39)
[2021-09-20] MEDS: FOLIC ACID 1 MG TABLET PO (08:10)
[2021-09-20] MEDS: LORazepam 1 MG TABLET PO ×3 (08:10→22:03)
[2021-09-20] MEDS: DOCUSATE 100 MG CAPSULE PO ×2 (08:10→22:05)
[2021-09-20] MEDS: MULTIVITAMIN 1 TABLET 1 TAB PO (08:11)
[2021-09-20] MEDS: GABAPENTIN 300 MG CAPSULE PO ×3 (08:11→22:05)
[2021-09-20] MEDS: THIAMINE 100 MG TABLET PO (08:11)
[2021-09-20] MEDS: HEPARIN 5,000 UNIT/ML VIAL 5000 UNIT SUBCUT ×2 (08:12→22:05)
[2021-09-20] MEDS: LOSARTAN 50 MG TABLET PO (08:16)
[2021-09-20] MEDS: METOPROLOL ER 50 MG TABLET PO (08:17)
--- NOTE | 2021-09-20 10:02 | PT.IPTN ---
Current Diagnoses Alcohol abuse with withdrawal delirium (09/18/21) Physical Therapy Treatment Note M2 PT-IP Current Condition Start: 09/19/21 15:55 Freq: NEEDED Status: Active Protocol: Document 09/19/21 14:10 AB (Rec: 09/19/21 16:08 AB [id number]) Physical Therapy Current Condition Current Condition Evaluation Date 09/19/21 Treatment Diagnosis alcohol withdrawal; suicidal ideation; difficulty in walking Onset Date 09/18/21 M3 PT-IP Subjective Start: 09/19/21 15:55 Freq: NEEDED Status: Active Protocol: Document 09/20/21 09:45 KS (Rec: 09/20/21 12:12 KS [id number]) Subjective Physical Therapy Visit Type Type Treatment Note Visit Start Time 09:45 Visit Stop Time 10:02 Total Visit Minutes 17 Number of CLINICAL DATA ANALYST Visits 1 Physical Therapy Visit Comments Patient Comments agreeable to do PT Therapy Pain Assessment Pain When Pain Assessed At Rest Pain Present Pain Present Pain Reported M4 PT-IP Mobility and Gait Start: 09/19/21 15:55 Freq: NEEDED Status: Active Protocol: Document 09/20/21 09:45 KS (Rec: 09/20/21 12:12 KS [id number]) PT-Bed Mobility Assessment Supine to Sit Supine to Sit Standby Assistance Sit to Supine Sit to Supine Standby Assistance PT-Transfer Assessment Sit to and From Stand Sit to and from Stand Contact Guard Assistance,1 Person Assistance,Use of Upper Extremities Equipment Transfer Assistive Device Gait Belt,Front Wheeled Walker Orthotic/Prosthetic Devices or Brace: No Transfers Transfer Destination Bed,Toilet Transfer Technique pt ambulated w/ FWW Transfer Ability Level of Assist Contact Guard Assistance,1 Person Assistance,Use of Upper Extremities Comments Mobility Comments Pt in bed upon arrival from therapy. SBA for sup<>sit and scooting EOB, CGA for sit<> stand w/ FWW. Pt then ambulated ~15 ft to toilet w/ 1x LOB to R Min A to recover, CGA for transfer to toilet and able to perform her own pericare. She then ambulated additional ~15 ft back to bed, but refused further ambulation due to full body aches and pounding headache. SBA for sit<>sup. Instructed pt and pt performed bilateral ankle pumps, SLR, and glute sets. Pt left in bed w/ all needs in reach. Gait Assessment Gait Gait Assistance Required: Minimum Assistance Distance (Feet) 30 Able to Maintain Weight Bearing Status Yes During Gait Assistive Devices Assistive Device Gait Belt,Front Wheeled Walker Orthotic/Prosthetic Devices or Brace: No Gait Deviations General Gait Pattern Ataxic,Decreased Stride Length ,Decreased Feet Clearance Factors Limiting Gait Function Factors Limiting Gait Function Decreased Activity Tolerance, Decreased Strength,Difficulty Following Directions,Pain,Poor Balance,Poor Safety Awareness Comments Gait Comments pls refer to mobility section for details PT-Balance Assessment Sitting Balance and Reactions Static Sitting Balance Ability Good Dynamic Sitting Balance Ability Fair Standing Balance and Reactions Static Standing Balance Ability Fair Dynamic Standing Balance Ability Fair Device Used FWW M5 PT-IP Objective Assessments Start: 09/19/21 15:55 Freq: NEEDED Status: Active Protocol: Document 09/19/21 14:10 AB (Rec: 09/19/21 16:08 AB [id number]) Orientation Orientation/Cognition Level of Alertness Alert Orientation Name Language Function Ability No Deficits Noted Safety Awareness Decreased Safety Awareness Gross Range of Motion Lower Extremity ROM Assessment Within Functional Limits Strength Lower Extremity Strength Hip 3+/5 Knee 3+/5 M6 PT-IP Treatment Start: 09/19/21 15:55 Freq: NEEDED Status: Active Protocol: Document 09/20/21 09:45 KS (Rec: 09/20/21 12:12 KS [id number]) Physical Therapy Treatment Exercises Exercises Ankle Pumps,Gluteal Sets, Straight Leg Raises Education Education Provided Safety M7 PT-IP Assessment and Plan Start: 09/19/21 15:55 Freq: NEEDED Status: Active Protocol: Document 09/20/21 09:45 KS (Rec: 09/20/21 12:12 KS [id number]) PT Summary Assessment and Plan Potential Rehabilitation Potential Fair Status of Condition at Evaluation Evolving Summary Impairments Pain,ROM,Strength,Balance, Coordination,Sensation,Tone, Cognition,Bed Mobility, Transfers,Gait,Activity Tolerance Assessment Summary Pt SBA for bed mobility, CGA for transfers, CGA to Min A for ambulation w/ FWW. 1x LOB requiring Min A for recovery due to unsteady gait. At this time she would not be safe to retrn home and would benefit from SNF to improve balance, strength, and functional mobility. Goals Bed Mobility Goal Independent Transfer Goal Independent,Front Wheeled Walker Gait Goal Independent,Front Wheel Walker Gait Distance 200 Other Goals improve ambulation without AD 300 ft mod I up/down steps without AD SBA Days to Meet Goals 10 Frequency of Treatment Frequency Of Treatment Once a Day Treatment Plan Physical Therapy Treatment Plan Bed Mobility Training,Transfer Training,Gait Training, Therapeutic Exercise,Balance Retraining,Discharge Planning, Neuromuscular Re-ed, Coordination Retraining Recommendations To Nursing Amount of Assist Needed 1 Person Assist Discharge Recommendations PT Discharge Recommendations SNF Rehab Transportation Needs at Discharge Wheelchair/Cabulance
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
[2021-09-20] MEDS: ACETAMINOPHEN 325 MG TABLET 650 MG PO ×2 (15:09→22:04)
[2021-09-20] MEDS: ONDANSETRON 4 MG/2 ML INJ IV (17:19)
--- NOTE | 2021-09-20 17:37 | DIET.CONS ---
Dietary Consultation Note Admission Date: 09/18/2021 04:47 RD consulted to meet c pt secondary to poor nutrition. Pt inappropriate for nutrition consultation at this time secondary to active withdrawls. Nutrition Dx: Acute on Chronic Protein Calorie Malnutrition r/t food insecurity and substance abuse aeb pt homeless from [place] actively withdrawing from etoh with current heroin and meth use and long hx of same. Intervention: 1. Continue General Diet while in stable hospital environment, if POs drop below 50% recc ONS. 2. Pt from out of state, local food resources may not be helpful as pt plans to leave state as soon as d/c. Electronically Signed by: Jewell Callejas 09/20/21 17:37 Clinical Dietitian [address] [address]
[2021-09-20] MEDS: LORazepam 2 MG/ML INJ IV (21:59)
[2021-09-21] VITALS (7 sets, daily range): BP systolic 97–126; BP diastolic 55–86; PULSE 63–76; RESP 14–16; TEMP 36.3–36.8; O2SAT 98–100
[2021-09-21 05:13] LABS: Alanine Aminotransferase 27 IU/L (<35); Albumin 3.6 g/dL (3.5-5.0); Albumin Globulin Ratio 1.1 (1.0-2.8); Alkaline Phosphatase 78 U/L (38-126); Aspartate Aminotransferase 53 IU/L (14-36); BUN Creatinine Ratio 12.9 (6-22); Blood Urea Nitrogen 8 mg/dL (7-17); Calcium 8.8 mg/dL (8.4-10.2); Carbon Dioxide 27 mmol/L (22-32); Chloride 102 mmol/L (98-107); Estimated Glomerular Filt Rate > 60.0 mL/min (>60); Globulin 3.4 g/dL (1.7-4.1); Glucose 106 mg/dL (70-100); HEMOLYSIS < 15 (0-50); Potassium 3.7 mmol/L (3.4-5.1); Sodium 134 mmol/L (137-145)
[2021-09-21] MEDS: GABAPENTIN 300 MG CAPSULE PO ×2 (09:10→15:18)
[2021-09-21] MEDS: FOLIC ACID 1 MG TABLET PO (09:10)
[2021-09-21] MEDS: THIAMINE 100 MG TABLET PO (09:11)
[2021-09-21] MEDS: NICOTINE 14 PATCH 14 MG TOP (09:11)
[2021-09-21] MEDS: MULTIVITAMIN 1 TABLET 1 TAB PO (09:11)
[2021-09-21] MEDS: DOCUSATE 100 MG CAPSULE PO (09:11)
[2021-09-21] MEDS: ISOSORBIDE DINITRATE 10 MG TABLET PO ×2 (09:13→13:00)
[2021-09-21] MEDS: PANTOPRAZOLE DR 40 MG TABLET PO (09:16)
[2021-09-21] MEDS: HEPARIN 5,000 UNIT/ML VIAL 5000 UNIT SUBCUT (09:25)
[2021-09-21] MEDS: METOPROLOL ER 50 MG TABLET PO (09:28)
[2021-09-21] MEDS: LOSARTAN 50 MG TABLET PO (09:33)
--- NOTE | 2021-09-21 09:52 | PT.IPTN ---
Current Diagnoses Alcohol abuse with withdrawal delirium (09/18/21) Physical Therapy Treatment Note M2 PT-IP Current Condition Start: 09/19/21 15:55 Freq: NEEDED Status: Active Protocol: Document 09/19/21 14:10 AB (Rec: 09/19/21 16:08 AB [id number]) Physical Therapy Current Condition Current Condition Evaluation Date 09/19/21 Treatment Diagnosis alcohol withdrawal; suicidal ideation; difficulty in walking Onset Date 09/18/21 M3 PT-IP Subjective Start: 09/19/21 15:55 Freq: NEEDED Status: Active Protocol: Document 09/21/21 09:41 RBD (Rec: 09/21/21 11:18 RBD [id number]) Subjective Physical Therapy Visit Type Type Treatment Note Visit Start Time 09:41 Visit Stop Time 09:52 Total Visit Minutes 11 Number of CRIMINAL LAWYER Visits 2 Physical Therapy Visit Comments Patient Comments agreeable to do PT M4 PT-IP Mobility and Gait Start: 09/19/21 15:55 Freq: NEEDED Status: Active Protocol: Document 09/21/21 09:41 RBD (Rec: 09/21/21 11:18 RBD [id number]) PT-Bed Mobility Assessment Scooting Scooting to Edge of Bed Independent PT-Transfer Assessment Sit to and From Stand Sit to and from Stand Standby Assistance,1 Person Assistance,Use of Upper Extremities Equipment Transfer Assistive Device Gait Belt,Front Wheeled Walker Orthotic/Prosthetic Devices or Brace: No Transfers Transfer Destination Bed Transfer Technique pt ambulated w/ FWW Transfer Ability Level of Assist Contact Guard Assistance,1 Person Assistance,Use of Upper Extremities Comments Mobility Comments Pt sitting in bed upon arrival . Independent for scooting EOB . CGA sit<>stand w/ bed head rail. Pt ambulated w/ FWW ~ 20ft SBA. No LOB or cueing for walker managment. Pt ambulated w/o AD CGA ~20 ft. Slight list to R and no LOB during ambulation. Pt independently transferred back to sitting in bed. Gait Assessment Gait Gait Assistance Required: Standby Assistance,Contact Guard Assist Distance (Feet) 40 Able to Maintain Weight Bearing Status Yes During Gait Assistive Devices Assistive Device Gait Belt,Front Wheeled Walker Orthotic/Prosthetic Devices or Brace: No Gait Deviations General Gait Pattern Decreased Stride Length, Decreased Feet Clearance Factors Limiting Gait Function Factors Limiting Gait Function Decreased Activity Tolerance, Decreased Strength,Difficulty Following Directions,Poor Balance,Poor Safety Awareness Comments Gait Comments pls refer to mobility section for details PT-Balance Assessment Sitting Balance and Reactions Static Sitting Balance Ability Good Dynamic Sitting Balance Ability Good Standing Balance and Reactions Static Standing Balance Ability Good Dynamic Standing Balance Ability Fair Device Used FWW M5 PT-IP Objective Assessments Start: 09/19/21 15:55 Freq: NEEDED Status: Active Protocol: Document 09/19/21 14:10 AB (Rec: 09/19/21 16:08 AB [id number]) Orientation Orientation/Cognition Level of Alertness Alert Orientation Name Language Function Ability No Deficits Noted Safety Awareness Decreased Safety Awareness Gross Range of Motion Lower Extremity ROM Assessment Within Functional Limits Strength Lower Extremity Strength Hip 3+/5 Knee 3+/5 M6 PT-IP Treatment Start: 09/19/21 15:55 Freq: NEEDED Status: Active Protocol: Document 09/21/21 09:41 RBD (Rec: 09/21/21 11:18 RBD [id number]) Physical Therapy Treatment Education Education Provided Safety M7 PT-IP Assessment and Plan Start: 09/19/21 15:55 Freq: NEEDED Status: Active Protocol: Document 09/21/21 09:41 RBD (Rec: 09/21/21 11:18 RBD [id number]) PT Summary Assessment and Plan Potential Rehabilitation Potential Fair Status of Condition at Evaluation Evolving Summary Impairments Pain,ROM,Strength,Balance, Coordination,Sensation,Tone, Cognition,Bed Mobility, Transfers,Gait,Activity Tolerance Assessment Summary Pt I for bed mobility, SBA for transfers, CGA for ambulation w/ FWW. No LOB however gait remains unsteady. Due to pt unsteady gait and poor safety awareness would benefit from SNF. Goals Bed Mobility Goal Independent Transfer Goal Independent,Front Wheeled Walker Gait Goal Independent,Front Wheel Walker Gait Distance 200 Other Goals improve ambulation without AD 300 ft mod I up/down steps without AD SBA Days to Meet Goals 10 Frequency of Treatment Frequency Of Treatment Once a Day Treatment Plan Physical Therapy Treatment Plan Bed Mobility Training,Transfer Training,Gait Training, Therapeutic Exercise,Balance Retraining,Discharge Planning, Neuromuscular Re-ed, Coordination Retraining Recommendations To Nursing Amount of Assist Needed 1 Person Assist Discharge Recommendations PT Discharge Recommendations SNF Rehab Transportation Needs at Discharge Wheelchair/Cabulance
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
--- NOTE | 2021-09-21 16:02 | CM.DPNOTE ---
Addendum entered by LIVAN Garcia 09/21/21 16:16: ADD: [facility] scheduled to pick patient up at 1630, taxi voucher form completed and copy given to patient to provide to [employer]. coupon and bond collection clerk at ER entrance. RODERICK Original Note: RONN Note Patient has been coordinating today w/Alba at [facility] and Chaplain Jorge; [facility] has secured a motel room at [facility] in [place] for two nights for patient. Placed call to [employer] in hopes of using taxi voucher, patient denies ability to pay for taxi. Awaiting CB. Patient aware of plan and agreeable Plan: DC to mot using [facility] motel voucher program, x2 nights. RODERICK
--- NOTE | 2021-09-21 19:26 | PC.NURSE ---
Pt is A&OX4. VSS, afebrile. CIWA score 0 this shift. She does express anxiety about discharging throughout the day as she makes a discharge plan with director of retail analytics assistance/referral for motel voucher. Pt denies n/v, headache this shift, no visible tremors and she is able to ambulate with a steady gait. She is medically cleared for discharge today. She verbalizes acknowledgement of discharge plan, and medications. At 1620 she is escorted via w/ch to [facility] for transport to [facility] with all of her belongings. She states she is going to [place] from [facility] for rehab with a friend her mother has purchased her bus ticket.
== END 2021-09-21 16:50 | disposition home or self-care (01) | DRG 897 ==
LOC: ED 23:52 → AC 09-18 04:48
PROVIDERS: Internal Medicine; Nurse Practitioner Family; Admitting Provider Internal Medicine; Emergency Provider Emergency Medicine; Referring Provider Emergency Medicine; Visit Provider Internal Medicine
DX: F10.131 Alcohol abuse with withdrawal delirium (principal); F11.20 Opioid dependence, uncomplicated; I42.9 Cardiomyopathy, unspecified; R45.851 Suicidal ideations; F32.9 Major depressive disorder, single episode, unspecified; I10 Essential (primary) hypertension; F15.90 Other stimulant use, unspecified, uncomplicated; Y90.8 Blood alcohol level of 240 mg/100 ml or more; F41.9 Anxiety disorder, unspecified; K21.9 Gastro-esophageal reflux disease without esophagitis; Z59.01 Sheltered homelessness; Z59.41 Food insecurity; F17.200 Nicotine dependence, unspecified, uncomplicated; G62.9 Polyneuropathy, unspecified; Z20.822 Contact with and (suspected) exposure to COVID-19
CPT/HCPCS: 36415; 70450; 71045; 80053; 80076; 80305; 80320; 80329; 82550; 82553; 83605; 83690; 83735; 83880; 84484; 85025; 87635; 93005; 93010; 96361; 96365; 96366; 96375; 96376; 97116; 97162; 97530; 99285; C9803; C9113; G0480; J1630; J1644; J2060; J2270; J2405; J2560; J7050